=== PATIENT | female | born 1965 | race Caucasian/White ===

== ENCOUNTER 2021-01-02 13:02 | Emergency (ER) | payer BC ==
[~2021-01-02] VITALS: Ht 167.6 cm; Wt 95.3 kg
[2021-01-02 13:47] LABS: HEMOGLOBIN 14.8 gm/dl (12.3-15.3); RED BLOOD COUNT 4.68 M/UL (4.00-5.10); WHITE BLOOD COUNT 8.5 K/UL (4.5-11.0)
[2021-01-02 14:13] LABS: BUN/CREATININE RATIO 8 (0-10)
== END 2021-01-02 15:25 | disposition home or self-care (01) ==
LOC: ER1 13:02
PROVIDERS: Physician Assistant
DX: Z23 Encounter for immunization (principal); U07.1 COVID-19; F17.200 Nicotine dependence, unspecified, uncomplicated
CPT/HCPCS: 80053; 85025; 99283; M0243